=== PATIENT | female | born 1935 | race Two or more races ===

== ENCOUNTER 2016-08-30 13:41 | Emergency (ER) | payer MEDICARE, BC ==
[~2016-08-30] VITALS: Ht 170.2 cm; Wt 92.1 kg
--- NOTE | 2016-08-30 13:41 | NUR ---
BBRA FROM HOME FOR SCRATCH ON LEG FROM "PICKING A PIMPLE" AND CONSTANTLY BLEEDING. NAD NOTED. PT STATES TAKING COUMADIN. PT AAO X4, AMB WITH STEADY GAIT. RR EVEN AND UNLABORED. VSS. APPLIED PRESSURE AT BEDSIDE.
--- NOTE | 2016-08-30 14:12 | NUR ---
DR WANG [facility]BALLY [facility]
[2016-08-30] MEDS ORDERED: GELATIN SPONGE,ABSORBABLE 1 SPONGE SPONGE TP ONE ×2 (14:13→15:00)
[2016-08-30 14:35] LABS: BASOPHILS % (AUTO) 0.6 % (0.0-2.0); EOSINOPHILS # (AUTO) 0.1 /CMM (0.0-0.7); EOSINOPHILS % (AUTO) 1.2 % (0.0-6.0); HEMATOCRIT 40 % (33-45); HEMOGLOBIN 13.7 g/dL (11.5-14.8); LYMPHOCYTES # (AUTO) 1.1 /CMM (0.8-4.8); MEAN CORPUSCULAR HEMOGLOBIN 31 PG (26.0-33.0); MEAN CORPUSCULAR HGB CONC 34 g/dl (31.0-36.0); MEAN CORPUSCULAR VOLUME 91 fL (82-100); MONOCYTES # (AUTO) 0.5 /CMM (0.1-1.30); MONOCYTES % (AUTO) 8.8 % (2.0-12.0); NEUTROPHILS # (AUTO) 4.4 /CMM (1.8-8.9); NEUTROPHILS % (AUTO) 71.4 % (43.0-81.0); PLATELET COUNT (AUTO) 191 /CMM (150-450); RDW COEFFICIENT OF VARIATION 12.7 (11.5-15.0); RED BLOOD CELL COUNT(AUTO) 4.38 MIL/uL (4.0-5.2); WHITE BLOOD COUNT (AUTO) 6.1 K/uL (4.3-11.0)
[2016-08-30 14:45] LABS: CALCIUM, SERUM 9.3 mg/dL (8.5-10.1); POTASSIUM 3.7 mmol/L (3.5-5.1)
[2016-08-30 14:49] LABS: INR 2.01 (0.87-1.13); PROTHROMBIN TIME 21.7 SECS (9.5-12.7)
[2016-08-30 15:14] VITALS: BP 116/62
--- NOTE | 2016-08-30 15:16 | NUR ---
CALLED PATIENT'S EMERGENCY CONTACT SAMUEL SCHMIDT SHE WILL PICK PATIENT UP
--- NOTE | 2016-08-30 15:18 | NUR ---
DRESSING INTACT, NO ACTIVE BLEEDING AT THIS TIME.
--- NOTE | 2016-08-30 15:33 | NUR ---
Patient discharged to home in stable condition. Written and verbal after care instructions given. Patient verbalizes understanding of instruction. ambulatory with steady gait. rr even and unlabored. aao x4, vss. site intact, no active bleeding at this time. no further complaints.
== END 2016-08-30 15:39 | disposition home or self-care (01) ==
LOC: ER 13:42
DX: R23.3 Spontaneous ecchymoses (principal); I10 Essential (primary) hypertension; Z95.4 Presence of other heart-valve replacement
CPT/HCPCS: 36415; 80048-TC; 85025-TC; 85730-TC; A4606; A6402; Z7610